=== PATIENT | male | born 1935 | race Caucasian/White ===

== ENCOUNTER 2019-07-24 23:10 | Inpatient (IN) | payer MEDICARE, BC ==
[~2019-07-24] VITALS: Ht 170.2 cm; Wt 73.6 kg
--- NOTE | ~2019-07-24 | HEMODYNAMI ---
PATIENT:SHAUNA SAWYER MEDICAL RECORD: [id number] : 37 [id number] ADMISSION DATE: 07/25/19 Generatedon:07/25/201914:04 Patient name: SHAUNA SAWYER Patient #: [id number] SSN: [id number] : 1935 Date of study: 07/25/2019 Page: Of Hemodynamic Procedure Report Patient Data Patient Demographics Procedure consent was obtained First Name: SHAUNA Gender: Male Last Name: DIGNA : 1935 [facility] Initial: H Age: 84 year(s) Patient #: [id number] Race: Unknown SSN: [id number] Additional ID: [id number] Contact details Address: [address] State: [place] City: [place] Zip code: [address] Admission Admission Data Admission Date: 07/25/2019 Admission Time: 2:24 Admit Source: Emergency department Room #: D.7 Lab Results Lab Result Date: 07/25/2019 Lab Result Time: 9:50 Biochemistry Name Units Result Min Max BUN mg/dl 17 --(---*)-- 7 18 Creatinine mg/dl 0.9 --(-*--)-- 0.6 1.3 CBC Name Units Result Min Max Hematocrit % 38.8 *-(----)-- 42 54 Hemoglobin g/dl 13 -*(----)-- 13.5 17.5 Procedure Procedure Types Cath Procedure Diagnostic Procedure LHC LHC w/Coronaries Sedation Charges Moderate Sedation up to 15 minutes Procedure Description Procedure Date Procedure Date: 07/25/2019 Procedure Start Time: 13:54 Procedure End Time: 14:03 Procedure Staff Name Function Ricardo Louis MD Performing Physician Pamela Chu RT Monitor Abilio Valencia RT Scrub Zeina Rouse RN Nurse Indication Abnormal ECG Procedure Data Cath Procedure Fluoroscopy Diagnostic fluoroscopy Total fluoroscopy Time: 1.3 time: 1.3 min min Diagnostic fluoroscopy Total fluoroscopy dose: 499 dose: 499 mGy mGy Contrast Material Contrast Material Type Amount (ml) Isovue 300 65 Entry Location Entry Primary Successful Side Size Upsize Upsize Entry Closure Succes sful Closure Location (Fr) 1 (Fr) 2 (Fr) Remarks Device Remarks Femoral Right 5 Fr Exoseal artery Estimated blood loss: 5 ml Diagnostic catheters Device Type Used For End Catheter Placement MULTIPACK JL 4.0 5Fr Left Coronary catheter Angiography MULTIPACK 3DRC 5Fr Right Coronary catheter Angiography MULTIPACK Pigtail 5 Fr LV Angiography catheter Procedure Complications No complications Procedure Medications Medication Administration Route Dosage 0.9% NaCl I.V. 100 ml/hr Oxygen etCO2 Nasal cannula 2 l/min Lidocaine 2% added to field 20 Heparin Flush Bag added to field 2 bags (1000units/500ml NS) Versed I.V. 0.5 mg Fentanyl I.V. 12.5 mcg Lopressor I.V. 5 mg Hemodynamics Rest HGB: 13 (g/dl) Heart Rate: 94 (bpm) Pressure Samples Time Site Value (mmHg) Purpose Heart Use Rate(bpm) 14:00 LV 224/-1,94 Snapshot 91 14:01 AO 183/85(133) Pullback 93 14:01 LV 158/9,67 Pullback 93 Gradients Valve Time Site 1 Site 2 Mean SEP/DFP Peak To Heart Use (mmHg) (sec/min) Peak Rate (mmHg) (bpm) Aortic 14:01 LV AO 0 93 158/9,67 183/85(133) Calculations Valve P-P Mean Valve Index Valve Source Name Gradient Area Flow (cm2) Aortic 0 0 Snapshots Pre Cath Intra NCS Post Cath Vital Signs Time Heart Resp SPO2 etCO2 NIBP (mmHg) Rhythm Pain Sedation Rate (ipm) (%) (mmHg) Status Level (bpm) 13:29:32 95 28 97 16 181/99(135) NSR 0 (11) 10(A) , No pain 13:33:27 90 26 97 16 174/93(132) NSR 0 (11) 10(A) , No pain 13:37:21 94 26 97 17 171/104(134) NSR 0 (11) 10(A) , No pain 13:42:20 91 26 98 22 Measuring NSR 0 (11) 10(A) , No pain 13:42:30 92 27 98 22 167/100(136) NSR 0 (11) 10(A) , No pain 13:46:21 98 20 98 9 180/109(142) NSR 0 (11) 9(A) , No pain 13:50:17 94 25 97 39.9 177/99(141) NSR 0 (11) 9(A) , No pain 13:54:12 96 27 97 16.5 176/110(150) NSR 0 (11) 9(A) , No pain 13:58:06 93 27 98 23.3 174/101(138) NSR 0 (11) 9(A) , No pain 14:02:28 81 28 97 20.3 177/91(128) NSR 0 (11) 10(A) , No pain Medications Time Medication Route Dose Verified Delivered Reason Notes Eff ectiveness by by 13:42:52 0.9% NaCl I.V. 100 Ricardo Zeina used for ml/hr Wayland Nasim procedure MD LUGO 13:42:59 Oxygen etCO2 2 Ricardo Zeina used for Nasal l/min Wayland Nasim procedure cannula MD LUGO 13:43:04 Lidocaine 2% added 20ml Ricardo Silva for local to vial [facility] anesthetic field MD MARTE 13:43:09 Heparin Flush added 2 Ricardo Ricardo used for Bag to bags [facility] procedure (1000units/500ml field MD MARTE NS) 13:43:24 Versed I.V. 0.5 Ricardo Zeina for mg [facility] Rouse sedation MD LUGO 13:43:34 Fentanyl I.V. 12.5 Ricardo Donaldyla for mcg Wayland Nasim sedation MD LUGO 13:59:36 Lopressor I.V. 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 13:09:25 Zeina Rouse RN sent for patient. Start room use. 13:09:26 Time tracking: Regular hours (M-F 7:00 - 5:00) 13:09:29 Plan of Care:Hemodynamics will remain stable., Cardiac rhythm will remain stable., Comfort level will be maintained., Respiratory function will remain adequate., Patient/ family verbilizes understanding of procedure., Procedure tolerated without complication., Recovers from procedure without complications.. 13:18:52 Patient received from Med II to CCL 2 Alert and oriented. Tansferred to table in Supine position. 13:18:53 Warm blankets applied, and autumn hugger turned on for patient comfort. 13:18:53 Correct patient and procedure confirmed by team. 13:18:54 ECG and BP/O2 sat monitors applied to patient. 13:23:40 Lab Result : Creatinine 0.9 mg/dl 13:23:40 Lab Result : BUN 17 mg/dl 13:23:40 Lab Result : Hematocrit 38.8 % 13:23:40 Lab Result : Hemoglobin 13 g/dl 13:23:46 Indication : Abnormal ECG 13:23:57 ACC Patient presents with Non-STEMI CCS Anginal Class 4--Inability to carry out any physical activity w/o angina. Angina may occur at rest. 13:24:30 ACCPatient has been prescribed/administered the following anti-anginal medication within the last 2 weeks: ANGIE-Inhibitor 13:24:39 H&P Date Dictated: 07/25/2019 Within 30 days and on chart.. 13:28:19 Vital chart was started 13:30:57 Baseline sample Acquired. 13:31:02 Rhythm: sinus tachycardia 13:31:03 Full Disclosure recording started 13:31:04 Pre-procedure instructions explained to patient. 13:31:05 Pre-op teaching completed and patient verbalized understanding. 13:31:06 Family in waiting room. 13:31:07 Patient NPO since Midnight. 13:31:10 Is the patient allergic to Iodine/contrast media? Yes. 13:31:10 Was the patient premedicated? Yes 13:31:22 Is patient on blood thinner?No 13:31:25 Patient diabetic? No. 13:31:28 Previous problem with sedation/anesthesia? No ? 13:31:29 Snore? Yes 13:31:30 Sleep apnea? No 13:31:31 Deviated septum? No 13:31:32 Opens mouth fully? Yes 13:31:34 Sticks out tongue? Yes 13:31:40 Airway obstruction? No ? 13:32:17 Dentures? No ? 13:32:32 Pre procedure: right dorsailis pedis pulse 2+ Normal; easily identifiable; not easily obliterated 13:32:40 Pre procedure: left dorsailis pedis pulse 1+ Palpable, but thready & weak; easily obliterated 13:32:44 Patient pain scale 0/10 ?. 13:32:52 IV patent on arrival in right wrist with 0.9% NaCl at [facility]. 13:32:55 Lab results completed and on chart. 13:33:06 Right groin area was prepped with chlora-prep and draped in sterile fashion 13:33:07 Alarms reviewed by R. N. 13:33:07 Sharps counted by scrub and verified by R.N. 13:40:10 Physician arrived 13:40:11 --------ALL STOP TIME OUT------ 13:40:12 Final Timeout: patient, procedure, and site verified with staff and physician. All members of the team are in agreement. 13:40:15 Right groin site verified by team. 13:42:52 0.9% NaCl 100 ml/hr I.V. was administered by Zeina Rouse RN; used for procedure; 13:42:59 Oxygen 2 l/min etCO2 Nasal cannula was administered by Zeina Rouse RN; used for procedure; 13:43:04 Lidocaine 2% 20ml vial added to field was administered by Ricardo Louis MD; for local anesthetic; 13:43:09 Heparin Flush Bag (1000units/500ml NS) 2 bags added to field was administered by Ricardo Louis MD; used for procedure; 13:43:24 Versed 0.5 mg I.V. was administered by Zeina Rouse RN; for sedation; 13:43:34 Fentanyl 12.5 mcg I.V. was administered by Zeina Rouse RN; for sedation; 13:49:50 Fire Safety Assessment: A--An alcohol-based skin anteseptic being used preoperatively., C--Open oxygen or nitrous oxide is being used., D--An ESU, laser, or fiber-optic light is being used. 13:49:54 Physical assessment completed. ASA score P 2 - A patient with mild systemic disease as per Ricardo Louis MD. 13:50:08 2) 60-89 Mildly reduced kidney function, and other findings (as for stage 1) point to kidney disease. 13:51:27 Maximum allowable contrast dose (3.7 X eGFR X 0.75)235 ml. 13:51:32 Sedation plan: IV Moderate Sedation Medication:Versed, Fentanyl 13:51:37 Use device set Femoral Dx 13:51:38 ACIST Syringe (42105) opened to sterile field. 13:51:39 Bag Decanter (2002S) opened to sterile field. 13:51:39 Medline Cath Pack ([id number]) opened to sterile field. 13:51:41 ACIST Hand Control (64199) opened to sterile field. 13:51:41 ACIST Manifold (00045) opened to sterile field. 13:51:41 DIAGNOSTIC Multipack 5Fr catheter set ([id number]) opened to sterile field. 13:51:42 Tegaderm 4 x 4 (1626W) opened to sterile field. 13:51:44 SHEATH 5FR [place] (GUB308) opened to sterile field. 13:51:45 EMERALD Guide Wire (422-630) opened to sterile field. 13:54:39 Procedure started. 13:54:42 Local anesthetic to right femoral artery with Lidocaine 2% by Ricardo Louis MD.INITIAL ACCESS ONLY 13:54:54 A 5 Fr sheath was inserted into the Right Femoral artery 13:55:01 A MULTIPACK JL 4.0 5Fr catheter was advanced over the wire and used for Left Coronary Angiography. 13:56:12 LCA angiography performed. 13:56:16 Injector settings: Ml/sec: 3, Volume: 6, 13:57:51 Catheter removed. 13:57:57 A MULTIPACK 3DRC 5Fr catheter was advanced over the wire and used for Right Coronary Angiography. 13:58:44 RCA angiography performed. 13:58:47 Injector settings: Ml/sec: 3, Volume: 6, 13:59:17 Catheter removed. 13:59:22 A MULTIPACK Pigtail 5 Fr catheter was advanced over the wire and used for LV Angiography. 13:59:36 Lopressor 5 mg I.V. was administered by Zeina Rouse RN; Per physician; 14:00:48 LV hemodynamics recorded. 14:00:49 LV gram done using GARCIA 14:00:52 Injector settings: Ml/sec: 5, Volume: 15, 14:01:18 EF : 55 % 14:01:19 Catheter removed. 14:01:21 EXOSEAL 5Fr (EX500) opened to sterile field. 14:01:32 Sheath removed intact; hemostasis achieved with Exoseal to the Right Femoral artery. 14:01:35 Procedure ended.(Physican Out) 14:01:47 Fluoroscopy time 01.30 minutes. 14:01:51 Fluoroscopy dose: 499 mGy 14:01:51 Flurop Dose total: 499 14:01:59 Dose Area Product 68481 mGy/cm. 14:02:05 Contrast amount:Isovue 300 65ml. 14:02:06 Sharps counted by scrub and verified by R.N. 14:02:08 Insertion/operative site no bleeding no hematoma. 14:02:21 Post-op/insertion site Right Femoral artery dressed using a 4 x 4 and Tegaderm. 14:02:24 Post procedure rhythm: unchanged. 14:02:26 Estimated blood loss: 5 ml 14:02:28 Post procedure instruction explained to patient.Patient verbalizes understanding. 14:02:28 Patient needs reinforcement of post procedure teaching. 14:02:36 Procedure type changed to Cath procedure, Diagnostic procedure, LHC, LHC w/Coronaries, Sedation Charges, Moderate Sedation up to 15 minutes 14:02:37 Procedure and supply charges have been captured, reviewed, submitted and are correct. 14:02:41 Procedure Complication : No complications 14:02:43 Vital chart was stopped 14:02:43 See physician's report for complete and final results. 14:02:57 Report given to Med II. 14:03:01 Patient transfered to Med II with Stretcher. 14:03:08 Procedure ended. 14:03:08 Full Disclosure recording stopped 14:03:13 End room use (Document Last) Device Usage Item Name Manufacture Quantity Catalog Hospital Part Current Minimal L ot# / Number Charge Number Stock Stock Serial# Code ACIST Acist 1 22948 [id number] [id number] 072902 20 Syringe Medical (72466) Systems Inc Bag Microtek 1 816371 69194 479702 5 Decanter Medical Inc. () Medline Medline 1 [id number] 151351 49106 797966 5 Cath Pack ([id number]) ACIST Hand Acist 1 46992 316393 385059 855770 5 Control Medical (18205) Systems Inc ACIST Acist 1 54269 572062 942476 827898 5 Manifold Medical (11964) Systems Inc DIAGNOSTIC Cardinal 1 PN1038 323962 96434 589937 30 Multipack Health 5Fr catheter set (JN2702) Tegaderm 4 3M 1 1626W 640554 155787 584052 5 x 4 (1626W) SHEATH 5FR Terumo 1 RLW332 942105 227737 405661 5 [place] (PRK634) EMERALD Cardinal 1 836-533 837962 354497 655917 5 Guide Wire Health (150-309) MULTIPACK Cardinal 1 211664 5 JL 4.0 5Fr Health catheter MULTIPACK Cardinal 1 324248 5 3DRC 5Fr Health catheter MULTIPACK Cardinal 1 983573 5 Pigtail 5 Health Fr catheter EXOSEAL 5Fr Cardinal 1 EX500 520356 510472 700227 10 (EX500) Health Signature Audit [place] Stage Time Signature Unsigned Intra-Procedure 07/25/2019 Pamela Chu 2:04:09 PM RT(R) Signatures Performing Physician : Signature : Ricardo Louis MD Date : Time : Monitor : Pamela Chu RT Signature : Date : Time : Nurse : Zeina Rouse RN Signature : Date : Time : [facility] [address] [place], [place] [address]
[2019-07-25 02:26] VITALS: BP 166/85; Ht 170.2 cm; Wt 73.6 kg
[2019-07-25] MEDS ORDERED: ULTRAM50 MG PO (04:19)
[2019-07-25] MEDS ORDERED: FUROSEMIDE40 MG PO (04:20)
[2019-07-25] MEDS ORDERED: TERBINAFINE 250 MG (04:20)
[2019-07-25] MEDS ORDERED: MOBIC7.5 MG PO (04:21)
[2019-07-25] MEDS ORDERED: LISINOPRIL20 MG PO (04:21)
[2019-07-25] MEDS ORDERED: OMEPRAZOLE20 M1 PO (04:22)
[2019-07-25] MEDS ORDERED: KENALOG 0.1 % 115 GM TOPICAL (04:22)
[2019-07-25] MEDS ORDERED: FLOMAX0.4 MG PO (04:22)
--- NOTE | 2019-07-25 09:31 | NUR ---
CONSENTS SIGNED FOR [facility]. WILL CONT. PLAN OF CARE.
[2019-07-25 09:57] LABS: BASOPHILS 0.3 % (0-2); EOSINOPHILS 1.8 % (0-7); HEMATOCRIT 38.8 % (42.0-54.0); IMMATURE GRANULOCYTES 0.4 % (0-5); LYMPHOCYTES 11.8 % (15-50); MCH 30.6 pg (26.0-34.0); MCHC 33.5 g/dL (31.0-37.0); MCV 91.3 fL (80.0-100.0); MEAN PLATELET VOLUME 10.1 fL (7.4-10.4); MONOCYTES 9.5 % (2-11); NEUTROPHILS 76.2 % (40-80); PLATELET COUNT 158 10x3/uL (130-400); RBC 4.25 10x6/uL (4.20-6.10); RDW 13.4 % (11.5-14.5); WBC 7.4 10x3/uL (4.8-10.8)
[2019-07-25 10:30] LABS: CALC OSMOLALITY 281 mosm/kg (275-300); CALCIUM 8.8 mg/dL (8.5-10.1); CARBON DIOXIDE 34.1 mmol/L (21.0-32.0); CHLORIDE - SERUM 103 mmol/L (98-107); CREATININE - SERUM 0.9 mg/dL (0.6-1.3); GLUCOSE 124 mg/dL (74-106); POTASSIUM - SERUM 4.3 mmol/L (3.5-5.1); SODIUM 140 mmol/L (136-145); UREA NITROGEN 17 mg/dL (7-18); eGFR NON AFRICAN AMERICAN 85 mL/min (90-120)
[2019-07-25 13:02] VITALS: BP 175/110
--- NOTE | 2019-07-25 13:21 | NUR ---
PRE-OPS GIVEN. TO COSMETIC ASSEMBLER BY BED.
--- NOTE | 2019-07-25 14:08 | CN ---
PATIENT NAME:SHAUNA SAWYER MEDICAL RECORD: [id number] : 37 LOCATION:[facility] D.2117 ADMIT DATE: 07/25/19 ACCOUNT: [id number] CONSULTING PHYSICIAN: LINO NUNEZ MD REFERRING PHYSICIAN: LINO NUNEZ MD DATE OF CONSULTATION: 07/25/2019 HISTORY OF PRESENT ILLNESS: An 84-year-old gentleman with a known history of coronary artery disease, has a history of cerebrovascular disease, history of hypertension, presented to the [place] ER with chest pain, tightness, shortness of breath, subsequently ruled in for non-ST elevation [place], he was transferred here for further evaluation. PAST MEDICAL HISTORY: Includes: 1. History of cerebrovascular disease. 2. Dyslipidemia. 3. Hypertension. 4. Gastroesophageal reflux disease. ALLERGIES: IODINE. MEDICATIONS: Include Flomax 0.4 mg p.o. every day, lisinopril 20 mg p.o. every day, Meloxicam 15 mg p.o. every day, tramadol 50 q.6 b.i.d. SOCIAL HISTORY: He is a nonsmoker, nondrinker. 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 REVIEW OF SYSTEMS: The patient reports easy bruising but reports no swollen glands. The patient reports no fever, no night sweats, no significant weight gain, no significant weight loss. No significant exercise tolerance. The patient reports no dry eyes, no irritation, no vision change. Patient reports no difficulty hearing and no ear pain. Patient reports no frequent nose bleeds or nose and sinus problems. Patient reports on arm pain on exertion. No shortness of breath while lying down. No history of heart murmur. Patient reports no cough, no wheezing or coughing up blood. Patient reports no abdominal pain, no vomiting. Normal appetite. No diarrhea and not vomiting blood. No nausea and no constipation. Patient reports no incontinence. No difficulty urinating. No hematuria. No increased frequency. Patient reports no muscle aches. No weakness, no arthralgias, no back pain. No swelling of the extremities. Patient reports no abnormal mole, no jaundice, no rashes. Reports no loss of consciousness. No weakness and no numbness. No seizures, dizziness, or headaches. The patient reports no depression, no sleep disturbance, feeling safe in a relationship and no alcohol abuse. Patient reports on fatigue. Reports no runny nose or sinus pressure. No itching, no hives, and no frequent sneezing. PHYSICAL EXAMINATION: GENERAL: Pleasant gentleman in no acute distress, appears stated age. VITAL SIGNS: Blood pressure 166/85, pulse 89 and regular. HEENT: Normocephalic, atraumatic. NECK: No bruits are noted. HEART: Regular. II/ systolic ejection murmur. LUNGS: Good air excursion. ABDOMEN: Soft, nontender. EXTREMITIES: Good pulses. No edema. CONSULT REPORT [id number] SHAUNA SAWYER DIAGNOSTIC DATA: ECG shows nonspecific ST-T changes inferolaterally. IMPRESSION: Non-ST elevation myocardial infarction. PLAN: For angiography, intervention based on above. TRANSINT:[id number] Voice Confirmation ID: [id number] DOCUMENT ID: [id number] LINO NUNEZ MD at 1408 CC: [id number] DICTATION DATE: 07/25/19 0854 HOSIERY PAIRER: 07/25/19 1207 ADM IN [place] [id number] [place] [id number]
--- NOTE | 2019-07-25 14:20 | NUR ---
PT ARRIVED BY STRETCHER. PLACED ON MONITOR. ASSESSMENT COMPLETED. VSS. FAMILY AT BEDSIDE.
--- NOTE | 2019-07-25 14:35 | NUR ---
RIGHT GROIN DRESSING C/D/I. NO S/S OF HEMATOMA NOTED. VSS. FAMILY AT BEDSIDE.
--- NOTE | 2019-07-25 15:10 | NUR ---
PT'S HEAD OF BED INC TO 30 DEGREES. TOLERATED WELL. PT IS CONFUSED. SAYS THAT THIS IS NORMAL FOR HIM AT HOME. RIGHT GROIN DRESSING C/D/I. NO S/S OF HEMATOMA NOTED. CALL LIGHT WITHIN REACH. PT EATING PUDDING AND DRINKING YUNI. TOLERATING WELL. NO C/O NAUSEA AT THIS TIME. DENIES PAIN.
--- NOTE | 2019-07-25 15:30 | NUR ---
PT STILL CONFUSED. STATES THAT HE'S MORE OUT OF IT THAN USUAL. ABLE TO FOLLOW COMMANDS. ORIENTED X 2. KEEPS ASKING TO TAKE A PICTURE. ATTEMPTED TO REORIENT. WILL CONTINUE TO MONITOR UNTIL FAMILY FEELS PT IS MORE STABLE TO TAKE HOME. PT REMOVED FROM MONITORS SINCE THESE WERE INCREASING HIS AGGITATION.
--- NOTE | 2019-07-25 16:00 | NUR ---
PT'S AT BEDSIDE. SHE REPORTS PT IS ASKING TO GET DRESSED. PIV D/C'D WITH CATH TIP INTACT. TOLERATED WELL. NO BLEEDING NOTED. RIGHT GROIN DRESSING C/D/I. NO S/S OF HEMATOMA NOTED. PT VOIDED APPROX 150CC OF YELLOW URINE IN URINAL. PT SAT UP TO SIDE OF BED WITH ASSIST. DRESSED WITH ASSIST. PT HAD BROWN SMEAR TO BUTTOCKS. MONICA-CARE GIVEN.
--- NOTE | 2019-07-25 16:10 | NUR ---
PT UP TO WHEELCHAIR WITH ASSIST. INFORMED PT'S THAT HE DID NOT HAVE TO LEAVE UNTIL SHE WAS SURE THAT SHE COULD TAKE CARE OF HIM AT HOME. SHE REPORTS HE IS MORE ALERT AND THAT SHE IS COMFORTABLE TAKING CARE OF HIM. SHE STATES SHE HAS LOTS OF HELP AT HOME IF SHE NEEDS IT. SHE STATES THAT SHE HAS HOME HEALTH THAT IS COMING TO HELP HER.
--- NOTE | 2019-07-25 16:19 | NUR ---
DISCUSSED DISCHARGE INSTRUCTIONS WITH PT'S . SHE VOICED UNDERSTANDING. SHE STATES THAT SHE IS COMFORTABLE WITH TAKING HIM HOME. HE IS MORE ALERT AND IS COOPERATIVE. SHE HAS OTHER FAMILY WITH HER AT THIS TIME TO ASSIST AND HAS A WHEELCHAIR AT HOME TO GET HIM INTO THE HOUSE.
--- NOTE | 2019-07-25 16:20 | NUR ---
PT TAKEN OUT TO VEHICLE BY WHEELCHAIR. SHELBY ASSISTED WITH PT GETTING INTO VEHICLE. ALL BELONGINGS AND PAPERWORK IN HAND. NO S/S OF DISTRESS NOTED.
--- NOTE | 2019-07-26 11:58 | OP ---
PATIENT NAME: SHAUNA SAWYER MEDICAL RECORD: [id number] :37 LOCATION:[facility]CL02 ADMISSION DATE:07/25/19 SURGEON: LINO NUNEZ MD DATE OF OPERATION: 07/25/2019 PROCEDURES: Left heart catheterization, selective coronary angiography, right femoral artery approach. CATHETERS: A 5-Maori sheath, 5/4 left and right Pranay, 5/4 pig. The procedure was well tolerated. The patient returned to esqueda, sheath removed. ExoSeal device placed. FINDINGS: Left ventriculography in 30-degree GARCIA view: Normal wall motion and normal systolic function. CORONARY ANATOMY: LEFT MAIN: Left main is free of disease. LAD: Free of disease in the diagonal system. CIRCUMFLEX: Free of disease in the marginal system. RIGHT CORONARY ARTERY: Dominant artery, gives rise to PDA, free of disease. IMPRESSION: Normal left ventricular systolic function, normal coronary anatomy. TRANSINT:[id number] Voice Confirmation ID: [id number] DOCUMENT ID: [id number] LINO NUNEZ MD at 1158 CC: [id number] DICTATION DATE: 07/25/19 1410 BUILDING GUARD DEPUTY SHERIFF: 07/25/19 2315 DIS IN 07/25/19 [facility] [address] [facility] [place] [address]
--- NOTE | 2019-08-15 14:23 | DS ---
PATIENT:SHAUNA SAWYER :37 MEDICAL RECORD: [id number] DISCHARGE SUMMARY ADMISSION DATE: 07/25/19 DISCHARGE DATE: 07/25/19 PRIMARY DIAGNOSES: 1. Non-ST elevation myocardial infarction. 2. Cerebrovascular disease status post cerebrovascular accident in the past. 3. Hypertension. BRIEF HISTORY AND HOSPITAL COURSE: Transferred from [place] with elevated troponin consistent with non-ST elevation myocardial infarction, underwent diagnostic angiography showed no major epicardial disease, normal LV function. Discharged home in good condition. ACTIVITY: As tolerated. DIET: AHA diet. FOLLOWUP: With his local primary care. TRANSINT:[id number] Voice Confirmation ID: [id number] DOCUMENT ID: [id number] LINO NUNEZ MD at 1423 CC: [id number] DICTATION DATE: 08/14/19 1307 AMBULATORY TECHNOLOGIST: 08/15/19 0801 DIS IN 07/25/19 [place] [id number] [place] [address]
== END 2019-07-25 16:20 | disposition home or self-care (01) | DRG 282 ==
LOC: D.M2 23:10 → D.CLR 07-25 14:28
PROVIDERS: ADMIT Internal Medicine Interventional Cardiology; ATTEND Internal Medicine Interventional Cardiology
PROC: B2151ZZ Fluoroscopy of Left Heart using Low Osmolar Contrast (ICD-10-PCS; 2019-07-25)
PROC: 4A023N7 Measurement of Cardiac Sampling and Pressure, Left Heart, Percutaneous Approach (ICD-10-PCS; 2019-07-25)
PROC: B2111ZZ Fluoroscopy of Multiple Coronary Arteries using Low Osmolar Contrast (ICD-10-PCS; principal; 2019-07-25 13:00)
DX: I21.4 Non-ST elevation (NSTEMI) myocardial infarction (principal); I25.10 Atherosclerotic heart disease of native coronary artery without angina pectoris; I10 Essential (primary) hypertension; E78.5 Hyperlipidemia, unspecified; K21.9 Gastro-esophageal reflux disease without esophagitis; Z86.73 Personal history of transient ischemic attack (TIA), and cerebral infarction without residual deficits